=== PATIENT | male | born 1975 | race Caucasian/White ===

== ENCOUNTER 2018-11-20 15:22 | Emergency (ER) | payer MEDICAID ==
[~2018-11-20] VITALS: Ht 177.8 cm; Wt 79.2 kg
[~2018-11-20 15:22] MED LIST: HYDR-877 PO
[2018-11-20 15:32] VITALS: Ht 177.8 cm; Wt 79.2 kg
[2018-11-20] MEDS ORDERED: KETOROLAC 30 MG INJ IM STA (18:01)
[2018-11-20] MEDS ORDERED: ONDANSETRON (ODT) 4 MG TAB ODT STA (18:59)
[2018-11-20] MEDS ORDERED: morphine 4 MG/ML VIAL IV STA (18:59)
[2018-11-20] MEDS ORDERED: DIPHTH/TET/ACEL PERTUSS (ADULT) 0.5 ML VIAL IM* ONE (19:00)
[2018-11-20] MEDS ORDERED: LIDOCAINE 2%/EPI (MDV) 20ML INJ INJ ONE (19:30)
[2018-11-20] MEDS ORDERED: CEPH-443 PO (21:06)
[2018-11-20] MEDS ORDERED: IBUP-1544 PO (21:06)
[2018-11-20] MEDS ORDERED: HYDR-4011 PO (21:06)
[2018-11-20 21:28] VITALS: BP 131/79; PULSE 89; RESP 20
--- NOTE | 2018-11-22 17:43 | ERD ---
ER Documentation Chief Complaint Chief Complaint right elbow upper arm pain after fall yesterday also has laceration HPI Patient presents with complaint of laceration to posterior right upper arm. Patient states it happened yesterday (within 24 hrs) however he is unclear exactly how it happened. First stating he was cut by metal then may be a knife then may be antione wire, ultimately stating he was intoxicated and does not really remember. Also complains of pain to his left knee and right elbow. Needs tetanus booster. Denies drug or alcohol use. Denies any medical history. Presents with arm wrapped in gauze and duct tape. ROS All systems reviewed and are negative except as per history of present illness. Medications Home Meds Active Scripts Ibuprofen* (Ibuprofen*) 800 Mg Tablet, 800 MG PO Q6H PRN for PAIN, #20 TAB Prov:GLENDY CRUM NP 11/20/18 Hydrocodone/Acetaminophen ([place] 5-325 Tablet) 1 Each Tablet, 1 TAB PO Q6H PRN for PAIN, #7 TAB Prov:GLENDY CRUM NP 11/20/18 Cephalexin* (Keflex*) 500 Mg Capsule, 500 MG PO QID for soft tissue injury for 10 Days, #40 CAP Prov:GLENDY CRUM ROLLER [employer]KER 11/20/18 Reported Medications Hydrocodone Bit/Acetaminophen (Vicodin Es Tablet) 1 Tab Tablet, 1 TAB PO QID, 0 Refills 02/10/12 Allergies Allergies: Coded Allergies: No Known Allergy (Unverified , 03/07/12) PMhx/Soc Medical and Surgical Hx: pt denies Medical Hx History of Surgery: No Anesthesia Reaction: No Hx Neurological Disorder: No Hx Respiratory Disorders: No Hx Cardiac Disorders: No Hx Psychiatric Problems: No Hx Miscellaneous Medical Probl: No Hx Alcohol Use: No Hx Substance Use: No Hx Tobacco Use: No Smoking Status: Never smoker FmHx Family History: No diabetes, No coronary disease, No other Physical Exam Vitals Vital Signs Date Temp Pulse Resp B/P (MAP) Pulse Ox O2 O2 Flow FiO2 Time Delivery Rate 11/20/18 97.9 89 20 131/79 99 Room Air 21:28 (96) 11/20/18 99.5 120 18 124/68 98 15:32 (86) Physical Exam GENERAL APPEARANCE: Well developed, well nourished, alert and cooperative, and appears to be in no acute distress. HEAD: normocephalic. EYES: PERRL, EOMI. Vision is grossly intact. EARS: External auditory canals and tympanic membranes clear, hearing grossly intact. NOSE: No nasal discharge. THROAT: Oral cavity and pharynx normal. No inflammation, swelling, exudate, or lesions. Teeth and gingiva in good general condition. NECK: Neck supple, non-tender without lymphadenopathy, masses or thyromegaly. CARDIAC: Normal S1 and S2. No S3, S4 or murmurs. Rhythm is regular. There is no peripheral edema, cyanosis or pallor. Extremities are warm and well perfused. Capillary refill is less than 2 seconds. No carotid bruits. LUNGS: Clear to auscultation and percussion without rales, rhonchi, wheezing or diminished breath sounds. ABDOMEN: Positive bowel sounds. Soft, non-distended, non-tender. No guarding or rebound. no bruising, no abrasions. MUSCULOSKELETAL: Adequately aligned spine. ROM intact spine and extremities. No joint erythema or tenderness. Normal muscular development. Normal gait. -Right arm: Shoulder flexion ltd to approx 140 degrees due to pain, no dislocation, no crepitus, no deformity at shoulder; Elbow tender at m/l epicon dyle, no crepitus, no deformity; Posterior upper arm with 14 cm laceration from posterior tricep at axilla to 3 sm superior to olecranon. Tricep muscle and tendon visible, subcutaneous fat visible, bleeding controlled, no active arterial or venous vessel bleeding. No foreign body observed. Sensation intact, no limitation to movement or strength. 5/5 bicep/tricep and electrical tryout person strength. -Left Knee: bruising over patella, midline, no swelling, no crepitus, negative for meniscus or ligament injury. Pt ambulates with steady gait. BACK: Examination of the spine reveals normal gait and posture, no spinal deformity, symmetry of spinal muscles, without tenderness, decreased range of motion or muscular spasm. NEUROLOGICAL: CN II-XII intact. Strength and sensation symmetric and intact throughout. SKIN: Skin normal color, texture and turgor with no lesions or eruptions. Multiple tattoos, multiple abrasions of varying age on all extremities. PSYCHIATRIC: The mental examination revealed the patient was oriented to person, place, and time. The patient was able to demonstrate good judgment and reason, without hallucinations, abnormal affect or abnormal behaviors during the examination. Patient is not suicidal. Results 24 hrs Current Medications Medications Dose Sig/Jane Start Time Status Last (Trade) Ordered Route PRN Stop Time Admin Dose Reason Admin Ketorolac 30 mg ONCE STAT 11/20/18 DC 11/20/18 Tromethamine IM 18:01 18:36 (Toradol) 11/20/18 18:16 Morphine 4 mg ONCE STAT 11/20/18 DC 11/20/18 Sulfate IV 18:59 19:15 (morphine) 11/20/18 19:09 Ondansetron 4 mg ONCE STAT 11/20/18 DC 11/20/18 HCl (Zofran ODT 18:59 19:15 Odt) 11/20/18 19:09 Diphtheria/ 0.5 ml ONCE ONCE 11/20/18 DC 11/20/18 Tetanus/Acell IM* 19:00 19:16 Pertussis 11/20/18 19:09 (Adacel) Lidocaine/ 20 ml ONCE ONCE 11/20/18 DC Epinephrine INJ 19:30 (Xylocaine 11/20/18 19:31 2%/ Epi (Mdv) 20 ml) PROCEDURE: X-ray right elbow. CLINICAL INDICATION: Trauma to the right elbow. Reference markers directed towards the dorsum of the elbow. TECHNIQUE: AP, lateral and oblique views of the right elbow. COMPARISON: None. FINDINGS: No acute fracture or dislocation. Posterior dorsal calcaneal enthesophyte. The soft tissues are unremarkable. IMPRESSION: No acute fracture. RPTAT: [facility] Physician Silvio Date Time Electronically viewed and signed by Physician Silvio on 11/20/2018 18:35 PROCEDURE: XR left knee CLINICAL INDICATION: Trauma, pain. TECHNIQUE: Three views of the left knee were obtained. COMPARISON: None. FINDINGS: There is no acute fracture or dislocation. Osseous structures are intact. Joint spaces are maintained. There is no knee joint effusion. IMPRESSION: 1. No acute osseous abnormality. RPTAT: [facility] R-Rana Fattahi, Physician Date Time Electronically viewed and signed by Physician Faith on 11/20/2018 18:43 Procedures/MDM Laceration Repair by me: Anesthesia: 2% lidocaine with epi administered locally to wound Location: Posterior right upper arm, 14 cm x 5 cm Tendon/Joint/Nerves: Full motion and sensation, no deficits observed Foreign body: None detected after copious irrigation, exploration, and imaging Technique: 14 Simple Interrupted Sutures, 4-0 Nylon Complexity: No subcutaneous sutures/mucosal repair/edge excision Post Closure Length: 14 cm This injury was assessed by Dr. Gallardo prior to closure. Due to nature of straight wound, lack of FB or debris, and ability to manually reapproximate edges, and no neurovascular injury, surgical evaluation was not warranted. Patient's bleeding was easily controlled in the department and there is no indication of anemia. No evidence of compartment syndrome, neurologic injury, vascular injury, open joint, tendon laceration, or foreign body. Patient is appropriate for outpatient follow up. 48 hour wound check. Scar minimization instructions given. Tdap and Abx provided. This 43 yo patient presents with multiple trauma from unknown or undisclosed event. He presents with large laceration to posterior right upper arm bandaged in gauze and duct tape. Removal of dressing revealed large but controlled wound. There was no obvious FB or accumulation of debris, there was not purulent drainage, no uncontrolled bleeding, tissues down to muscle belly moist and red. No fracture, ligament, or meniscal injury to left knee or right elbow as evidenced by no deficit in function, ROM, circulation, or sensation. Xray for left knee and right elbow negative for fracture, FB, avulsion, or dislocation. Patient states he is reliable to follow-up back at the emergency room in 48 hours for reevaluation of injury. Patient verbalized understanding of signs and symptoms of worsening of condition including uncontrolled pain, paresthesia, fever, uncontrolled bleeding, immense swelling. Patient verbalized understanding of home care of wound. Patient verbalized understanding of need to complete entire course of antibiotics. Patient has been prescribed narcotic medications. Patient was instructed that narcotics cannot be refilled from our emergency department and these medications are for temporary acute condition and should be replaced by use of Tylenol, ibuprofen, and add adjunctive therapy such as use of heat or cooling. Patient instructed that narcotics are habit forming and can lead to dependency. Patient instructed to use stool softener and increase hydration while taking narcotics. Patient instructed to not operate heavy machinery, operate vehicle, care for small children while on narcotic medication. [place]ES database reviewed for controlled substance history. There is no indication the patient is abusing prescription medications or is at risk for misuse. History and Physical exam demonstrate the prescribed medication is indicated for the treatment of the patient's condition. Departure Diagnosis: Primary Impression: Laceration of right upper arm Condition: Stable Patient Instructions: Laceration (Sure+Close) Referrals: [facility] YOU HAVE RECEIVED A MEDICAL SCREENING EXAM AND THE RESULTS INDICATE THAT YOU DO NOT HAVE A CONDITION THAT REQUIRES URGENT TREATMENT IN THE EMERGENCY DEPARTMENT. FURTHER EVALUATION AND TREATMENT OF YOUR CONDITION CAN WAIT UNTIL YOU ARE SEEN IN YOUR DOCTORS OFFICE WITHIN THE NEXT 1-2 DAYS. IT IS YOUR RESPONSIBILITY TO MAKE AN APPOINTMENT FOR FOLOW-UP CARE. IF YOU HAVE A PRIMARY DOCTOR --you should call your primary doctor and schedule an appointment IF YOU DO NOT HAVE A PRIMARY DOCTOR YOU CAN CALL OUR PHYSICIAN REFERRAL HOTLINE AT IF YOU CAN NOT AFFORD TO SEE A PHYSICIAN YOU CAN CHOSE FROM THE FOLLOWING [facility] [address] [facility]. [facility] [address] [facility] [facility] [address] [facility] [facility] [address] [facility]. [facility] [address] [facility]. [facility]. [address] [place] Additional Instructions: Keep wound clean and dry. Entire course of antibiotics. Return to emergency room in 2 days for wound check. Sutures to be removed in 10 days. You may return to this emergency room or follow-up with primary care doctor. Return to the emergency room immediately with pain unresolved with prescription pain medications, drainage, swelling Keep arm elevated as much as possible GLENDY CRUM NP Nov 22, 2018 17:22
== END 2018-11-20 21:30 | disposition home or self-care (01) ==
LOC: FTE 15:22
DX: S41.111A Laceration without foreign body of right upper arm, initial encounter (principal); S80.02XA Contusion of left knee, initial encounter; W26.9XXA Contact with unspecified sharp object(s), initial encounter; Y92.9 Unspecified place or not applicable; Z23 Encounter for immunization
CPT/HCPCS: 12005; 73080; 73562; 90471; 90715; 96372; 96374; J1885; J2270; Z7502; Z7610

== ENCOUNTER 2018-12-04 21:02 | Emergency (ER) | payer MEDICAID ==
[~2018-12-04] VITALS: Ht 167.6 cm; Wt 81.6 kg
[~2018-12-04 21:02] MED LIST changes: +CEPH-443 PO; +HYDR-4011 PO; +IBUP-1544 PO
[2018-12-04 21:17] VITALS: Ht 167.6 cm; Wt 81.6 kg
--- NOTE | 2018-12-05 01:10 | ERD ---
ER Documentation Chief Complaint Chief Complaint R upper arm suture removal, Lac X 2 wks ago HPI 43-year-old male presents for suture removal of a left upper arm laceration that was sutured 2 weeks ago here in the ER. Denies any fevers or chills. Denies any discharge from the area. He completed his antibiotic prescription. No significant past medical history. ROS All systems reviewed and are negative except as per history of present illness. Medications Home Meds Active Scripts Ibuprofen* (Ibuprofen*) 800 Mg Tablet, 800 MG PO Q6H PRN for PAIN, #20 TAB Prov:GLENDY CRUM NP 11/20/18 Hydrocodone/Acetaminophen ([place] 5-325 Tablet) 1 Each Tablet, 1 TAB PO Q6H PRN for PAIN, #7 TAB Prov:GLENDY CRUM NP 11/20/18 Cephalexin* (Keflex*) 500 Mg Capsule, 500 MG PO QID for soft tissue injury for 10 Days, #40 CAP Prov:GLENDY CRUM NP 11/20/18 Reported Medications Hydrocodone Bit/Acetaminophen (Vicodin Es Tablet) 1 Tab Tablet, 1 TAB PO QID, 0 Refills 02/10/12 Allergies Allergies: Coded Allergies: No Known Allergy (Unverified , 03/07/12) PMhx/Soc History of Surgery: No Anesthesia Reaction: No Hx Neurological Disorder: No Hx Respiratory Disorders: No Hx Cardiac Disorders: No Hx Psychiatric Problems: No Hx Miscellaneous Medical Probl: No Hx Alcohol Use: No Hx Substance Use: No Hx Tobacco Use: No Physical Exam Vitals Vital Signs Date Temp Pulse Resp B/P (MAP) Pulse Ox O2 O2 Flow FiO2 Time Delivery Rate 12/04/18 98.2 59 18 129/78 98 21:17 (95) Physical Exam Const: No acute distress Resp: Clear to auscultation bilaterally Cardio: Regular rate and rhythm, no murmurs Skin: Left upper arm stitches noted, clean dry intact Ext: No cyanosis, or edema Neur: Awake and alert Psych: Normal Mood and Affect Procedures/MDM Suture Removal by me: Sutures removed with tweezers and scissors without incident. Wound shows no evidence of infection, foreign body, neurologic injury, vascular injury, open joint or tendon laceration. Patient to follow up PRN. Medical Decision Making: Patient presents with suture removal of a right upper arm laceration that was sutured here in the ER 2 weeks ago. Patient was neurovascular intact Sutures removed, see procedure note above Patient tolerated procedure well Patient advised to follow up with PCP in 1-2 days. Patient advised to return to ED for new or worsening symptoms. Patient stable on discharge from the ED. Disclaimer: Inadvertent spelling and grammatical errors are likely due to EHR/dictation software use and do not reflect on the overall quality of patient care. Also, please note that the electronic time recorded on this note does not necessarily reflect the actual time of the patient encounter. Departure Diagnosis: Primary Impression: Encounter for removal of sutures Condition: Fair Patient Instructions: Suture Removal, No Complication Referrals: [facility] YOU HAVE RECEIVED A MEDICAL SCREENING EXAM AND THE RESULTS INDICATE THAT YOU DO NOT HAVE A CONDITION THAT REQUIRES URGENT TREATMENT IN THE EMERGENCY DEPARTMENT. FURTHER EVALUATION AND TREATMENT OF YOUR CONDITION CAN WAIT UNTIL YOU ARE SEEN IN YOUR DOCTORS OFFICE WITHIN THE NEXT 1-2 DAYS. IT IS YOUR RESPONSIBILITY TO MAKE AN APPOINTMENT FOR FOLOW-UP CARE. IF YOU HAVE A PRIMARY DOCTOR --you should call your primary doctor and schedule an appointment IF YOU DO NOT HAVE A PRIMARY DOCTOR YOU CAN CALL OUR PHYSICIAN REFERRAL HOTLINE AT IF YOU CAN NOT AFFORD TO SEE A PHYSICIAN YOU CAN CHOSE FROM THE FOLLOWING [facility] [address] [facility]. [facility] [address] [facility]. [facility] [address] [facility] [facility] [address] [facility]. [facility] [address] [facility]. [facility]. [address] Additional Instructions: Call your primary care doctor TOMORROW for an appointment during the next 1-2 days.See the doctor sooner or return here if your condition worsens before your appointment time. PRISCILA GARCIA DO Dec 05, 2018 01:10
[2018-12-05 01:15] VITALS: BP 125/82; PULSE 58; RESP 20
== END 2018-12-05 01:49 | disposition home or self-care (01) ==
LOC: FTE 21:02
DX: Z48.02 Encounter for removal of sutures (principal)
CPT/HCPCS: 99281

== ENCOUNTER 2019-07-08 16:12 | Emergency (ER) | payer OTHER ==
[~2019-07-08] VITALS: Ht 170.2 cm; Wt 81.6 kg
[~2019-07-08 16:12] MED LIST changes: +IBUP-1542 PO; +METH750T93 PO
[2019-07-08 16:54] VITALS: BP 119/64; Ht 170.2 cm; Wt 81.6 kg
[2019-07-08] MEDS ORDERED: HYDROCODONE/APAP (10/325) TAB PO ONE (18:00)
[2019-07-08 18:33] VITALS: PULSE 77; RESP 18
== END 2019-07-08 18:34 | disposition home or self-care (01) ==
LOC: FTE 16:12
DX: S62.637A Displaced fracture of distal phalanx of left little finger, initial encounter for closed fracture (principal); W21.05XA Struck by basketball, initial encounter; Y92.310 Basketball court as the place of occurrence of the external cause
CPT/HCPCS: 29130; 73130; Z7502; Z7610